=== PATIENT | female | born 1965 | race Caucasian/White ===

== ENCOUNTER 2016-12-27 00:51 | Emergency (ER) | payer OTHER ==
[~2016-12-27] VITALS: Ht 165.1 cm; Wt 122.5 kg
[~2016-12-27 00:51] MED LIST: ADIPEX-P37.5 M1 PO; AMANTADINE100 MG PO; ASPIR-LOW81 MG PO; AZITHROMYCIN250 MG PO; Aspirin E.C. PO; BACTRIM,SEPT1 TABLET PO; BUTALB-APAP-CA1 EACH PO; CLARITIN10 M3 PO; CLINDAMYCIN HC300 MG PO; CO Q-10100 MG PO; CO Q-10200 MG PO; CRANBERRY250 MG PO; CRANBERRY400 MG PO; CYANOCOBALAM1000 MCG PO; DAILY VITAMIN1 EAC8 PO; DAILY VITE1 EAC1 PO; DIAMOX250 MG PO; ESSENTIAL WOMA1 EAC1 PO; FIORICET,ESG1 TABLET PO; FLORASTOR250 MG PO; GLUCOPHAGE500 MG PO; INHALER; KLOR-CON 88 MEQ PO; MACROBID100 MG PO; METFORMIN HCL1000 M1 PO; METFORMIN HCL500 M1 PO; MIRALAX17 GM PO; MIRALAX255 GM PO; MODAFINIL100 MG PO; NAPROSYN500 MG PO; NUVIGIL150 MG PO; OMEPRAZOLE40 M1 PO; PHENTERMINE H37.5 MG PO; POTASSIUM CHLOR8 ME3 PO; PRAVACHOL20 MG PO; PRILOSEC40 MG PO; PROAIR HFA8.5 GM IH; PULMICORT180 MICROG IH; PYRIDOSTIGMINE60 MG PO; RANITIDINE; RANITIDINE HCL300 MG PO; SINGULAIR10 MG PO; STERAPRED 5 MG U5 MG PO; TOPAMAX50 MG PO; VENTOLIN HFA18 GM IH; VITAMIN B-122000 MC1 PO; VITAMIN B-122500 MCG SL; VITAMIN B125000 MCG PO; VITAMIN D-32000 UNI2 PO; WOMEN'S DAILY1 EAC1 PO; ZANTAC150 MG PO; ZANTAC300 MG PO
[2016-12-27 01:10] LABS: HEMATOCRIT 40.7 % (36.0-46.0); MCH 31.1 PG (29.0-34.0); MCHC 34.6 G/DL (30.0-36.0); MCV 89.6 FL (83-99); MEAN PLAT.VOLUME 9.2 uM^3 (9.5-12.4); PLATELET COUNT 241 K/uL (156-360); RBC DIS.WIDTH-CV 13.2 % (11.8-14.6); RBC DIS.WIDTH-SD 42.4 % (39-53); RED BLOOD COUNT 4.54 M/uL (3.80-5.20); WHITE BLOOD COUNT 8.3 K/uL (4.1-10.2)
[2016-12-27 01:12] LABS: CREATININE 0.8 mg/dL (0.6-1.3); POTASSIUM 3.6 mEq/L (3.7-5.4)
[2016-12-27 01:23] LABS: CHLORIDE 106 mEq/L (99-109); POTASSIUM 3.7 mEq/L (3.7-5.4); SODIUM 139 mEq/L (136-147)
[2016-12-27 01:24] LABS: GLUCOSE 120 mg/dL (70-99)
[2016-12-27 01:26] LABS: ANION GAP 10 MEQ/L (2-14)
[2016-12-27 01:28] LABS: GFR ESTIMATE (CALCULATED) > 59 mL/min/
[2016-12-27 01:29] LABS: UREA NITROGEN (BUN) 17 mg/dL (9-23)
[2016-12-27 03:09] VITALS: BP 126/79
== END 2016-12-27 05:33 | disposition home or self-care (01) ==
LOC: EME → EDBD 00:51 → EME 00:51
PROVIDERS: Emergency Medicine
DX: E87.6 Hypokalemia (principal); G72.3 Periodic paralysis; K21.9 Gastro-esophageal reflux disease without esophagitis
CPT/HCPCS: 80047; 80048; 83605; 83735; 85027; 93005; 99281; 99285; J3475; J3480; J7030

== ENCOUNTER 2017-01-14 09:38 | Emergency (ER) | payer OTHER ==
[~2017-01-14] VITALS: Ht 172.7 cm; Wt 111.8 kg
[2017-01-14 10:22] LABS: EOSINOPHIL COUNT 0.1 K/uL (0-0.3); HEMATOCRIT 42.9 % (36.0-46.0); IMMATURE GRANULOCYTE (%) 0.2 % (0.0-0.7); IMMATURE GRANULOCYTE COUNT 0.1 K/uL; LYMPHOCYTE COUNT 1.4 K/uL (1.0-2.8); MCH 30.8 PG (29.0-34.0); MCHC 34.5 G/DL (30.0-36.0); MCV 89.2 FL (83-99); MEAN PLAT.VOLUME 9.2 uM^3 (9.5-12.4); MONOCYTE (%) 9.9 % (3-12); MONOCYTE COUNT 0.5 K/uL (0-0.8); NEUTROPHIL (%) 61.2 % (45-76); NEUTROPHIL COUNT 3.4 K/uL (1.8-6.4); PLATELET COUNT 268 K/uL (156-360); RBC DIS.WIDTH-CV 13.3 % (11.8-14.6); RBC DIS.WIDTH-SD 42.7 % (39-53); RED BLOOD COUNT 4.81 M/uL (3.80-5.20); WHITE BLOOD COUNT 5.5 K/uL (4.1-10.2)
[2017-01-14 10:33] LABS: CHLORIDE 107 mEq/L (99-109); POTASSIUM 3.8 mEq/L (3.7-5.4); SODIUM 139 mEq/L (136-147)
[2017-01-14 10:34] LABS: MAGNESIUM 2.4 mg/dL (1.3-2.7)
[2017-01-14 10:35] LABS: GLUCOSE 95 mg/dL (70-99)
[2017-01-14 10:37] LABS: ANION GAP 7 MEQ/L (2-14); TOTAL BILIRUBIN 0.4 mg/dL (0.0-1.0)
[2017-01-14 10:39] LABS: ALKALINE PHOSPHATASE 54 IU/L (3-129); GFR ESTIMATE (CALCULATED) > 59 mL/min/
[2017-01-14 10:40] LABS: UREA NITROGEN (BUN) 15 mg/dL (9-23)
[2017-01-14 16:22] VITALS: BP 122/82
== END 2017-01-14 16:23 | disposition home or self-care (01) ==
LOC: EME 09:38
PROVIDERS: Emergency Medicine
DX: G72.3 Periodic paralysis (principal)
CPT/HCPCS: 80053; 83735; 85025; 99281; 99285; J7040

== ENCOUNTER 2017-01-30 00:42 | Emergency (ER) | payer OTHER ==
[~2017-01-30] VITALS: Ht 172.7 cm; Wt 111.3 kg
[2017-01-30 01:26] LABS: ADD MIUA? YES; BILIRUBIN NEGATIVE; BLOOD NEGATIVE; COLOR YELLOW ((YELLOW)); GLUCOSE (STRIP) NEGATIVE; KETONES NEGATIVE; LEUKOCYTES LARGE; NITRITE NEGATIVE; PROTEIN (STRIP) NEGATIVE
[2017-01-30 01:47] LABS: BACTERIA RARE /HPF; BUDDING YEAST 1+; CALCIUM OXALATE CRYSTALS 4+ /HPF; EPITHELIAL CELLS 1+ /HPF; HYALINE CASTS 0-5 /LPF; MUCUS TRACE /LPF; UCUL ADDED? NO
[2017-01-30 02:19] LABS: HEMATOCRIT 42.2 % (36.0-46.0); MCH 30.8 PG (29.0-34.0); MCHC 33.4 G/DL (30.0-36.0); MCV 92.1 FL (83-99); MEAN PLAT.VOLUME 9.2 uM^3 (9.5-12.4); PLATELET COUNT 246 K/uL (156-360); RBC DIS.WIDTH-SD 43.8 % (39-53); RED BLOOD COUNT 4.58 M/uL (3.80-5.20); WHITE BLOOD COUNT 6.7 K/uL (4.1-10.2)
[2017-01-30 02:34] LABS: CHLORIDE 107 mEq/L (99-109); POTASSIUM 3.8 mEq/L (3.7-5.4); SODIUM 142 mEq/L (136-147)
[2017-01-30 02:36] LABS: GLUCOSE 98 mg/dL (70-99)
[2017-01-30 02:38] LABS: ANION GAP 14 MEQ/L (2-14)
[2017-01-30 02:40] LABS: GFR ESTIMATE (CALCULATED) > 59 mL/min/
[2017-01-30 02:41] LABS: TOTAL BILIRUBIN 0.3 mg/dL (0.0-1.0); UREA NITROGEN (BUN) 16 mg/dL (9-23)
[2017-01-30 02:42] LABS: ALKALINE PHOSPHATASE 55 IU/L (3-129)
[2017-01-30] MEDS ORDERED: ZOFRAN8 MG PO (02:44)
[2017-01-30] MEDS ORDERED: CIPRO250 MG PO (02:44)
[2017-01-30 02:45] LABS: DIRECT BILIRUBIN 0.1 mg/dL (0.0-0.3)
[2017-01-30 02:46] LABS: LIPASE 27 U/L (1.0-51.0)
[2017-01-30] MEDS ORDERED: TRAMADOL HCL50 MG PO (03:35)
[2017-01-30 03:55] VITALS: BP 116/68
== END 2017-01-30 03:58 | disposition home or self-care (01) ==
LOC: EME 00:42
DX: N30.00 Acute cystitis without hematuria (principal); R10.9 Unspecified abdominal pain; K21.9 Gastro-esophageal reflux disease without esophagitis; E87.6 Hypokalemia
CPT/HCPCS: 74176; 80048; 80076; 81003; 83690; 85027; 99281; 99285; J2405; J3010; J7030

== ENCOUNTER 2017-02-16 02:51 | Emergency (ER) | payer OTHER ==
[~2017-02-16] VITALS: Ht 172.7 cm; Wt 112.5 kg
[~2017-02-16 02:51] MED LIST changes: +CIPRO250 MG PO; +TRAMADOL HCL50 MG PO; +ZOFRAN8 MG PO
[2017-02-16 04:12] LABS: MCHC 33.6 G/DL (30.0-36.0); MCV 92.1 FL (83-99); MEAN PLAT.VOLUME 9.7 uM^3 (9.5-12.4); PLATELET COUNT 331 K/uL (156-360); RBC DIS.WIDTH-CV 12.9 % (11.8-14.6); RBC DIS.WIDTH-SD 43.8 % (39-53); RED BLOOD COUNT 4.78 M/uL (3.80-5.20); WHITE BLOOD COUNT 6.6 K/uL (4.1-10.2)
[2017-02-16 04:24] LABS: POTASSIUM ND MEQ/L (3.7-5.4)
[2017-02-16 04:32] LABS: CHLORIDE 104 mEq/L (99-109); SODIUM 136 mEq/L (136-147)
[2017-02-16 04:34] LABS: GLUCOSE 117 mg/dL (70-99)
[2017-02-16 04:35] LABS: ANION GAP 14 MEQ/L (2-14)
[2017-02-16 04:36] LABS: TOTAL BILIRUBIN 0.2 mg/dL (0.0-1.0)
[2017-02-16 04:37] LABS: ALKALINE PHOSPHATASE 56 IU/L (3-129)
[2017-02-16 04:38] LABS: GFR ESTIMATE (CALCULATED) > 59 mL/min/
[2017-02-16 04:39] LABS: UREA NITROGEN (BUN) 12 mg/dL (9-23)
[2017-02-16 04:40] LABS: DIRECT BILIRUBIN 0.1 mg/dL (0.0-0.3)
[2017-02-16 04:41] LABS: TROP-I INTERPRETATION NEGATIVE; TROPONIN-I < 0.01 ng/mL (0.0-0.30)
[2017-02-16 05:07] LABS: MAGNESIUM 2.3 mg/dL (1.3-2.7); POTASSIUM 4.2 mEq/L (3.7-5.4)
[2017-02-16] MEDS ORDERED: ASMANEX TW200 MICRO1 IH (05:38)
[2017-02-16] MEDS ORDERED: VENTOLIN HFA18 GM IH (05:39)
[2017-02-16] MEDS ORDERED: MIRALAX17 GM PO (05:40)
[2017-02-16 06:13] VITALS: BP 127/72
== END 2017-02-16 06:42 | disposition home or self-care (01) ==
LOC: EME 02:51
PROVIDERS: Emergency Medicine
DX: J45.901 Unspecified asthma with (acute) exacerbation (principal); R79.89 Other specified abnormal findings of blood chemistry; K21.9 Gastro-esophageal reflux disease without esophagitis; Z87.442 Personal history of urinary calculi
CPT/HCPCS: 71020; 71275; 80048; 80076; 83735; 84100; 84484; 84999; 85027; 85379; 93005; 94640; 99281; 99285; J7030

== ENCOUNTER 2017-08-18 15:40 | Observation (INO) | payer OTHER ==
[~2017-08-18] VITALS: Ht 172.7 cm; Wt 112.5 kg
[~2017-08-18 15:40] MED LIST changes: +ASMANEX TW200 MICRO1 IH; -RANITIDINE
[2017-08-18 16:30] LABS: EOSINOPHIL (%) 1.3 % (0-5); EOSINOPHIL COUNT 0.1 K/uL (0-0.3); HEMATOCRIT 42.4 % (36.0-46.0); IMMATURE GRANULOCYTE (%) 0.3 % (0.0-0.7); INSTRUMENT ABS NEUTROPHIL CT 5.2 K/uL; LYMPHOCYTE COUNT 1.9 K/uL (1.0-2.8); MCH 30.2 PG (29.0-34.0); MCV 88.9 FL (83-99); MEAN PLAT.VOLUME 9.2 uM^3 (9.5-12.4); MONOCYTE (%) 8.2 % (3-12); MONOCYTE COUNT 0.6 K/uL (0-0.8); NEUTROPHIL (%) 65.9 % (45-76); NEUTROPHIL COUNT 5.2 K/uL (1.8-6.4); PLATELET COUNT 298 K/uL (156-360); RBC DIS.WIDTH-CV 13.1 % (11.8-14.6); RBC DIS.WIDTH-SD 42.7 % (39-53); RED BLOOD COUNT 4.77 M/uL (3.80-5.20); WHITE BLOOD COUNT 7.8 K/uL (4.1-10.2)
[2017-08-18 16:44] LABS: CHLORIDE 106 mEq/L (99-109); POTASSIUM 3.8 mEq/L (3.7-5.4); SODIUM 139 mEq/L (136-147)
[2017-08-18 16:45] LABS: MAGNESIUM 2.4 mg/dL (1.3-2.7)
[2017-08-18 16:46] LABS: GLUCOSE 98 mg/dL (70-99)
[2017-08-18 16:48] LABS: ANION GAP 11 MEQ/L (2-14); TOTAL BILIRUBIN 0.3 mg/dL (0.0-1.0)
[2017-08-18 16:50] LABS: TROP-I INTERPRETATION NEGATIVE; TROPONIN-I < 0.01 ng/mL (0.0-0.30)
[2017-08-18 16:50] LABS: ALKALINE PHOSPHATASE 48 IU/L (3-129); GFR ESTIMATE (CALCULATED) > 59 mL/min/
[2017-08-18 16:51] LABS: UREA NITROGEN (BUN) 16 mg/dL (9-23)
[2017-08-18] MEDS ORDERED: ADIPEX-P37.5 M1 PO (19:19)
[2017-08-18] MEDS ORDERED: KEVEYIS50 MG PO (19:21)
[2017-08-18 23:47] VITALS: BP 122/57
[2017-08-19 04:43] VITALS: BP 110/53
[2017-08-19 06:21] LABS: HEMATOCRIT 41.1 % (36.0-46.0); MCH 29.7 PG (29.0-34.0); MCHC 32.8 G/DL (30.0-36.0); MCV 90.5 FL (83-99); MEAN PLAT.VOLUME 9.1 uM^3 (9.5-12.4); PLATELET COUNT 274 K/uL (156-360); RBC DIS.WIDTH-CV 13.2 % (11.8-14.6); RBC DIS.WIDTH-SD 43.4 % (39-53); RED BLOOD COUNT 4.54 M/uL (3.80-5.20)
[2017-08-19 06:43] LABS: ANION GAP 9 MEQ/L (2-14); CHLORIDE 108 MEQ/L (99-109); GFR ESTIMATE (CALCULATED) > 59 mL/min/; GLUCOSE 134 mg/dL (70-99); POTASSIUM 3.3 MEQ/L (3.7-5.4); SAMPLE HEMOLYSIS CHECK 0; SAMPLE ICTERIC CHECK 0; SAMPLE LIPEMIA CHECK 0; SODIUM 141 MEQ/L (136-147); UREA NITROGEN (BUN) 14 mg/dL (9-23)
[2017-08-19 07:48] LABS: Estimated Average Glucose 108 mg/dL (70-123); HEMOGLOBIN A1c (GLYCOHEMOGLOB) 5.4 % HGB (Below 5.7)
[2017-08-19 09:26] LABS: POINT-OF-CARE METER ID UU13113831
[2017-08-19 12:03] VITALS: BP 115/68
[2017-08-19 12:47] LABS: POINT-OF-CARE METER ID UU13113831
[2017-08-19 16:35] VITALS: BP 123/77
[2017-08-19 17:18] LABS: POINT-OF-CARE METER ID UU14162513
[2017-08-19 20:47] VITALS: BP 124/75
[2017-08-19 21:19] LABS: POINT-OF-CARE METER ID UU13113831
== END 2017-08-19 22:04 | disposition home or self-care (01) ==
LOC: EME 15:40 → EDOF 19:34 → 5WEST 19:34 → EDOF 19:34 → ENRESERV 19:36 → 5WEST 23:39
PROVIDERS: Emergency Medicine; Hospitalist
DX: G72.3 Periodic paralysis (principal); E11.9 Type 2 diabetes mellitus without complications; E87.6 Hypokalemia; K21.9 Gastro-esophageal reflux disease without esophagitis; E66.9 Obesity, unspecified; Z79.84 Long term (current) use of oral hypoglycemic drugs; Z68.37 Body mass index [BMI] 37.0-37.9, adult; Z87.442 Personal history of urinary calculi; Z88.0 Allergy status to penicillin; Z88.5 Allergy status to narcotic agent; Z88.8 Allergy status to other drugs, medicaments and biological substances; Z91.018 Allergy to other foods
CPT/HCPCS: 70450; 71010; 71020; 80048; 80053; 82948; 83036; 83735; 84484; 85025; 85027; 86850; 86900; 86901; 93005; 94640; 99202; 99281; 99285; G0378; J1650; J3480; J7030

== ENCOUNTER 2017-11-10 21:26 | Emergency (ER) | payer OTHER ==
[~2017-11-10] VITALS: Ht 175.3 cm; Wt 112.4 kg
[~2017-11-10 21:26] MED LIST changes: +KEVEYIS50 MG PO
[2017-11-10 22:43] LABS: EOSINOPHIL (%) 3.2 % (0-5); EOSINOPHIL COUNT 0.2 K/uL (0-0.3); HEMATOCRIT 39.2 % (36.0-46.0); IMMATURE GRANULOCYTE (%) 0.5 % (0.0-0.7); INSTRUMENT ABS NEUTROPHIL CT 4.3 K/uL; LYMPHOCYTE COUNT 1.5 K/uL (1.0-2.8); MCH 30.6 PG (29.0-34.0); MCHC 33.7 G/DL (30.0-36.0); MCV 90.7 FL (83-99); MEAN PLAT.VOLUME 9.5 uM^3 (9.5-12.4); MONOCYTE (%) 9.2 % (3-12); MONOCYTE COUNT 0.6 K/uL (0-0.8); NEUTROPHIL COUNT 4.3 K/uL (1.8-6.4); PLATELET COUNT 292 K/uL (156-360); RBC DIS.WIDTH-CV 13.2 % (11.8-14.6); RBC DIS.WIDTH-SD 44.3 % (39-53); RED BLOOD COUNT 4.32 M/uL (3.80-5.20); WHITE BLOOD COUNT 6.7 K/uL (4.1-10.2)
[2017-11-10 22:52] LABS: CHLORIDE 109 mEq/L (99-109); POTASSIUM 3.5 mEq/L (3.7-5.4); SODIUM 139 mEq/L (136-147)
[2017-11-10 22:55] LABS: GLUCOSE 119 mg/dL (70-99)
[2017-11-10 22:56] LABS: ANION GAP 9 MEQ/L (2-14)
[2017-11-10 22:57] LABS: TOTAL BILIRUBIN 0.4 mg/dL (0.0-1.0)
[2017-11-10 22:58] LABS: ALKALINE PHOSPHATASE 43 IU/L (3-129); GFR ESTIMATE (CALCULATED) > 59 mL/min/
[2017-11-10 22:59] LABS: UREA NITROGEN (BUN) 20 mg/dL (9-23)
[2017-11-11 00:27] VITALS: BP 113/62
== END 2017-11-11 00:45 | disposition home or self-care (01) ==
LOC: EME 21:26
PROVIDERS: Emergency Medicine
DX: G72.3 Periodic paralysis (principal); R53.1 Weakness; J45.909 Unspecified asthma, uncomplicated; K21.9 Gastro-esophageal reflux disease without esophagitis; Z88.5 Allergy status to narcotic agent; Z88.1 Allergy status to other antibiotic agents
CPT/HCPCS: 80053; 85025; 93005; 99281; 99285; J3480

== ENCOUNTER 2017-11-11 11:29 | Emergency (ER) | payer OTHER ==
[~2017-11-11] VITALS: Ht 175.3 cm; Wt 109.0 kg
[2017-11-11 13:06] LABS: EOSINOPHIL (%) 2.3 % (0-5); EOSINOPHIL COUNT 0.2 K/uL (0-0.3); HEMATOCRIT 39.1 % (36.0-46.0); IMMATURE GRANULOCYTE (%) 0.3 % (0.0-0.7); LYMPHOCYTE COUNT 1.6 K/uL (1.0-2.8); MCHC 33.5 G/DL (30.0-36.0); MCV 92.4 FL (83-99); MEAN PLAT.VOLUME 9.1 uM^3 (9.5-12.4); MONOCYTE (%) 8.6 % (3-12); MONOCYTE COUNT 0.6 K/uL (0-0.8); NEUTROPHIL (%) 66.6 % (45-76); PLATELET COUNT 289 K/uL (156-360); RBC DIS.WIDTH-CV 13.3 % (11.8-14.6); RBC DIS.WIDTH-SD 45.1 % (39-53); RED BLOOD COUNT 4.23 M/uL (3.80-5.20); WHITE BLOOD COUNT 7.5 K/uL (4.1-10.2)
[2017-11-11 13:16] LABS: CHLORIDE 108 mEq/L (99-109); MAGNESIUM 2.1 mg/dL (1.3-2.7); POTASSIUM 3.7 mEq/L (3.7-5.4); SODIUM 141 mEq/L (136-147)
[2017-11-11 13:19] LABS: ANION GAP 9 MEQ/L (2-14)
[2017-11-11 13:20] LABS: GLUCOSE 89 mg/dL (70-99); TOTAL BILIRUBIN 0.3 mg/dL (0.0-1.0)
[2017-11-11 13:21] LABS: ALKALINE PHOSPHATASE 45 IU/L (3-129)
[2017-11-11 13:22] LABS: GFR ESTIMATE (CALCULATED) > 59 mL/min/
[2017-11-11 13:23] LABS: UREA NITROGEN (BUN) 18 mg/dL (9-23)
[2017-11-11 13:30] LABS: TROP-I INTERPRETATION NEGATIVE; TROPONIN-I < 0.01 ng/mL (0.0-0.30)
[2017-11-11 13:46] LABS: SERUM ETHYL ALCOHOL < 10 mg/dL
[2017-11-11 18:13] VITALS: BP 139/72
== END 2017-11-11 18:15 | disposition home or self-care (01) ==
LOC: EME 11:29
PROVIDERS: Emergency Medicine
DX: R41.82 Altered mental status, unspecified (principal); F44.9 Dissociative and conversion disorder, unspecified; E87.6 Hypokalemia; J45.909 Unspecified asthma, uncomplicated; Z79.84 Long term (current) use of oral hypoglycemic drugs
CPT/HCPCS: 70450; 71010; 80053; 80306 90; 81003; 83735; 84484; 85025; 93005; 99281; 99285; G0480; J7040

== ENCOUNTER 2018-04-16 23:43 | Emergency (ER) | payer OTHER ==
[~2018-04-16] VITALS: Ht 175.3 cm; Wt 108.1 kg
[2018-04-17 00:14] LABS: HEMATOCRIT 38.6 % (36.0-46.0); HEMOGLOBIN 13.1 G/DL (11.9-15.5); MCH 30.8 PG (29.0-34.0); MCHC 33.9 G/DL (30.0-36.0); MCV 90.8 FL (83-99); PLATELET COUNT 263 K/uL (156-360); RBC DIS.WIDTH-CV 13.8 % (11.8-14.6); RBC DIS.WIDTH-SD 46.1 % (39-53); RED BLOOD COUNT 4.25 M/uL (3.80-5.20); WHITE BLOOD COUNT 13.7 K/uL (4.1-10.2)
[2018-04-17 00:22] LABS: CHLORIDE 108 mEq/L (99-109); POTASSIUM 3.2 mEq/L (3.7-5.4); SODIUM 142 mEq/L (136-147)
[2018-04-17 00:24] LABS: GLUCOSE 109 mg/dL (70-99)
[2018-04-17 00:28] LABS: CREATININE 0.8 mg/dL (0.6-1.3); GFR ESTIMATE (CALCULATED) > 59 mL/min/; UREA NITROGEN (BUN) 20 mg/dL (9-23)
[2018-04-17 05:06] LABS: APPEARANCE CLEAR ((CLEAR)); BILIRUBIN NEGATIVE; BLOOD NEGATIVE; COLOR YELLOW ((YELLOW)); GLUCOSE (STRIP) NEGATIVE; KETONES NEGATIVE; LEUKOCYTES SMALL; NITRITE NEGATIVE; PROTEIN (STRIP) NEGATIVE; SPECIFIC GRAVITY 1.021 (1.000-1.030); UROBILINOGEN 0.2 MG/DL (0.2-1.0)
[2018-04-17 05:09] LABS: BACTERIA NONE SEEN /HPF; EPITHELIAL CELLS RARE /HPF; MUCUS TRACE /LPF; RED BLOOD CELLS 0-5 /HPF (0-5); UCUL ADDED? YES
[2018-04-17 05:44] VITALS: BP 116/54
== END 2018-04-17 05:56 | disposition home or self-care (01) ==
LOC: EME 23:43
PROVIDERS: Emergency Medicine
DX: J20.9 Acute bronchitis, unspecified (principal); B34.9 Viral infection, unspecified; J45.909 Unspecified asthma, uncomplicated; K21.9 Gastro-esophageal reflux disease without esophagitis; Z79.84 Long term (current) use of oral hypoglycemic drugs; Z88.5 Allergy status to narcotic agent; Z88.0 Allergy status to penicillin; Z87.442 Personal history of urinary calculi
CPT/HCPCS: 71046; 80048; 81003; 85027; 87086; 87502; 94640; 94640 76; 99281; 99285; J7030